=== PATIENT | female | born 1930 | race Caucasian/White ===

== ENCOUNTER 2016-12-19 08:47 | Inpatient (IN) | payer OTHER ==
[~2016-12-19] VITALS: Ht 157.5 cm; Wt 57.0 kg
--- NOTE | ~2016-12-19 | D ---
[facility] [place] [address] DISCHARGE SUMMARY Name: SUDHAKAR APARICIO Room #: 435-P [facility] IN M.R.#: [id number] Admission: 12/19/16 Attend Phys: Scott Mars MD Discharge: 12/21/16 Date of : 31 Report #: [id number] THIS REPORT FOR: //name// CC: Scott Shipman Juarez DATE OF SERVICE: 12/21/2016 FINAL DIAGNOSES: 1. Urinary tract infection. 2. Hypertension. HOSPITAL COURSE: The patient was admitted from her assisted living facility with general weakness. She was unable to function at that level due to acute illness and then was sent to the Emergency Room. She was diagnosed with urinary tract infection and treated with antibiotics. Urine culture was growing gram-negative rods and blood cultures were negative. Other lab data was unremarkable. Sepsis was ruled out. She was not hemodynamically unstable nor where there any signs of end-organ involvement. She tolerated hospital stay without any other incident. Home medications were continued and she continued Do Not Resuscitate status. PHYSICAL EXAMINATION: GENERAL: On the day of discharge, she was awake and alert. She had had some diarrhea, but this resolved. VITAL SIGNS: Temperature is 36.7, she was afebrile, pulse 80, respirations 20, blood pressure 154/88-178/89 with O2 sat 95% on room air. LUNGS: Clear. HEART: Regular. ABDOMEN: Soft. EXTREMITIES: Showed no edema. DISPOSITION: She will be discharged back to [facility] assisted living with diabetic diet, activity as tolerated. Continue medications plus Keflex 500 mg q.i.d. for 5 more days. <ELECTRONICALLY SIGNED> By: Scott Mars MD 12/22/16806 5 Scott Mars MD /nt
--- NOTE | ~2016-12-19 | EKG ---
[address] [place] [employer] [place] [address] ELECTROCARDIOGRAM REPORT Name: BALDEV APARICIONCCONNIE Mclean Room #: 435-P [facility] IN ..#: [id number] Admission: 12/19/16 Attend Phys: Scott Mars MD Discharge: 12/21/16 Date of : 31 Report #: [id number] THIS REPORT FOR: //name// [facility] ED Test Date: 2016-12-19 Test Time: 09:21:41 Pat Name: SUDHAKAR APARICIO Department: Room: [facility] Gender: F Principal Technical Architect: TARAS : 1930 Requested By: Coreen Parish Order Number: [id number] MD: Olman Anton Measurements Intervals [place] Rate: 66 P: -5 IN: 166 QRS: 3 QRSD: 56 T: 181 QT: 398 QTc: 417 Interpretive Statements Poor quality data, interpretation may be affected Sinus rhythm Electronically Signed On 12-22-2016 21:59:48 CDT by Olman Anton [email or web address] <ELECTRONICALLY SIGNED> By: Olman Anton MD 12/22/16 2159 0921 0 Olman Anton MD /LADONNA
--- NOTE | ~2016-12-19 | H ---
[facility] [place] [address] HISTORY AND PHYSICAL Name: SUDHAKAR APARICIO Room #: 435-P ADM IN M.R.#: [id number] Admission: 12/19/16 Attend Phys: Scott Mars MD Discharge: Date of : 31 Report #: [id number] THIS REPORT FOR: //name// CC: Scott Pizarro DATE OF SERVICE: 12/19/2016 ATTENDING PHYSICIAN: Ramonita Pizarro MD. CHIEF COMPLAINT: Weakness and fever. HISTORY OF PRESENT ILLNESS: The patient is an 86-year-old female from [facility] the [facility] who was sent in today with generalized weakness and fever. She by report lives in the assisted living level and normally can get up with her walker; however, this morning, she is told that she just felt weak all over and wanted to stay in bed. They noted some low-grade fever as well. This was a significant change. They spoke with Dr. Pizarro who directed her to the Emergency Room. There was report overnight of temperature of 99.1. PAST MEDICAL HISTORY: Parkinson's disease. She has a deep brain stimulator, myasthenia gravis, diabetes type 2, esophageal reflux, dyslipidemia, hypertension, hypothyroidism. PAST SURGICAL HISTORY: As above. FAMILY HISTORY: Noncontributory. SOCIAL HISTORY: As mentioned, she is in the assisted living at [facility] the [facility]. No chronic alcohol or tobacco use. ALLERGIES: CIPRO. MEDICATIONS: Fosamax, Lasix, Levoxyl, lisinopril, glucosamine, MiraLax, thiamine, calcium plus D, metformin, metoprolol, flaxseed, eye drops, Crestor, Tylenol, tramadol, gabapentin. REVIEW OF SYSTEMS: She just complains of urinary frequency, otherwise no headache, chest pain, shortness of breath, abdominal pain, nausea, vomiting, diarrhea, constipation, dysuria, syncope. PHYSICAL EXAMINATION: VITAL SIGNS: Temperature 37.1, pulse 70, respirations 13, blood pressure 120/56. GENERAL: She is awake and alert, in no distress. HEAD AND NECK: Slightly hard of hearing. [facility] [address] [place] [address] HISTORY AND PHYSICAL Name: SUDHAKAR APARICIO Room #: 435-P [facility] IN .R.#: [id number] Admission: 12/19/16 Attend Phys: Scott Mars MD Discharge: Date of : 31 Report #: [id number] LUNGS: Clear with no wheezing. On the anterior chest, there are 2 devices 1 on each upper site. HEART: Regular, no murmur. ABDOMEN: Soft, normoactive bowel sounds. EXTREMITIES: No cyanosis, clubbing or edema. NEUROLOGIC: Global strength 3-4/5 throughout. No tremor. LABORATORY REVIEW: Urinalysis was positive for leukocyte esterase, white cells, bacteria. White blood cell count 15 with the left shift, 73% segmented neutrophils, creatinine 1.1. Other electrolytes normal. ASSESSMENT: 1. Febrile illness. 2. Suspect urinary tract infection. 3. Parkinson's disease. 4. Hypertension. 5. Diabetes type 2. PLAN: IV fluids for now plus IV antibiotics pending culture results. Other home medications to continue. She has a do not resuscitate order from the facility, which will be continued here. <ELECTRONICALLY SIGNED> By: Scott Mars MD 12/20/16 0940 1220 1355 Scott Mars MD /nt
[~2016-12-19 08:47] MED LIST: ALENDRONATE SOD70 MG PO; CALCIUM 500 +1 EAC5 PO; CRESTOR10 MG PO; FLAX SEED OIL1000 MG PO; FUROSEMIDE 20 M20 MG GT; LEVOTHYROXINE0.05 MG PO; LISINOPRIL20 MG PO; METFORMIN HCL500 MG PO; MIRALAX17 G1 PO; OSTEO BI-FLEX1 EAC1 PO; SYSTANE 0.3-0.1 EACH OP; TOPROL XL100 MG PO; TRAMADOL 50 MG50 MG PO; TYLENOL325 MG PO; VITAMIN B-1100 M1 PO
[2016-12-19 08:48] VITALS: BP 120/56
[2016-12-19 09:13] LABS: ABSOLUTE NEUTROPHILS 11.2 thou/uL (1.4-8.2); BASOPHILS 1.1 % (0.0-2.0); EOSINOPHILS 0.2 % (0.0-3.0); HEMATOCRIT 34.9 % (37.0-47.0); HEMOGLOBIN 11.9 gm/dL (12.0-15.0); LYMPHOCYTES 14.8 % (24.0-44.0); MCH 31.1 pg (26.0-34.0); MCV 91.7 fL (80.0-100.0); PLATELET COUNT 222 thou/uL (150-400); POLYS 72.9 % (36.0-66.0); RBC 3.81 mil/uL (4.20-5.00); RDW 13.9 % (10.5-14.5); WBC 15.4 thou/uL (4.0-11.0)
[2016-12-19 09:14] LABS: MANUAL DIFF NO
[2016-12-19 09:15] LABS: ANION GAP 7 mmol/L (7-16); BUN 16 mg/dL (7-18); CALCIUM 9.1 mg/dL (8.5-10.1); CHLORIDE 104 mmol/L (98-107); CO2 27 mmol/L (21-32); CREATININE 1.1 mg/dL (0.6-1.0); GLUCOSE 118 mg/dL (74-106); POTASSIUM 3.8 mmol/L (3.5-5.1); SODIUM 138 mmol/L (136-145)
[2016-12-19 09:24] LABS: ALBUMIN 3.3 g/dL (3.4-5.0); ALKALINE PHOSPHATASE 65 U/L (46-116); SGOT 16 U/L (15-37); SGPT 13 U/L (30-65); TOTAL BILIRUBIN 1.2 mg/dL (<0.1-1.0); TOTAL PROTEIN 7.1 g/dL (6.4-8.2); TROPONIN-I < 0.04 ng/mL (<0.04-0.07)
[2016-12-19] MEDS ORDERED: GABAPENTIN 100100 MG PO (10:02)
[2016-12-19 10:07] LABS: URINE BILIRUBIN NEGATIVE (Negative); URINE BLOOD TRACE (Negative); URINE COLOR YELLOW; URINE GLUCOSE-RANDOM* NEGATIVE (Negative); URINE KETONES NEGATIVE (Negative); URINE NITRITE NEGATIVE (Negative); URINE PROTEIN (DIPSTICK) NEGATIVE (Negative); URINE SPECIFIC GRAVITY <= 1.005 (1.003-1.035); URINE UROBILINOGEN 0.2 E.U./dl (0.2-1.0)
[2016-12-19 10:13] LABS: SQUAMOUS 0-3 Few /LPF (0-3)
[2016-12-19 10:17] LABS: BACTERIA >30 Many /HPF (None Seen); CASTS None Seen /LPF (None Seen); CRYSTALS None Seen /LPF (None Seen); URINE RBC 0-2 Rare /HPF (0-2); URINE WBC 6-15 Few /HPF (0-5)
[2016-12-19 10:18] LABS: TRANSITIONAL EPITHEL CELL 0-3 Few /LPF (None Seen)
[2016-12-19 12:46] VITALS: BP 142/81
[2016-12-19 13:36] VITALS: BP 141/71
[2016-12-19 16:14] VITALS: BP 148/59
[2016-12-19 19:50] VITALS: BP 146/58
[2016-12-20 05:25] VITALS: BP 156/88
[2016-12-20 08:00] VITALS: BP 163/85
[2016-12-20 10:02] LABS: HEMATOCRIT 37.4 % (37.0-47.0); HEMOGLOBIN 12.3 gm/dL (12.0-15.0); MCH 30.6 pg (26.0-34.0); MCHC 33.1 g/dL (28.0-37.0); MCV 92.7 fL (80.0-100.0); RBC 4.03 mil/uL (4.20-5.00); RDW 13.9 % (10.5-14.5); WBC 11.1 thou/uL (4.0-11.0)
[2016-12-20 10:24] LABS: CALCIUM 8.6 mg/dL (8.5-10.1); POTASSIUM 3.8 mmol/L (3.5-5.1)
[2016-12-20 16:00] VITALS: BP 151/99
[2016-12-20 19:37] VITALS: BP 154/88
[2016-12-21 05:05] VITALS: BP 178/89
[2016-12-21 05:12] LABS: HEMATOCRIT 35.1 % (37.0-47.0); HEMOGLOBIN 11.8 gm/dL (12.0-15.0); MCH 31.3 pg (26.0-34.0); MCHC 33.8 g/dL (28.0-37.0); MCV 92.6 fL (80.0-100.0); RBC 3.79 mil/uL (4.20-5.00); RDW 14.3 % (10.5-14.5); WBC 8.7 thou/uL (4.0-11.0)
[2016-12-21 05:27] LABS: CALCIUM 8.3 mg/dL (8.5-10.1); CREATININE 0.9 mg/dL (0.6-1.0); POTASSIUM 3.6 mmol/L (3.5-5.1)
[2016-12-21] MEDS ORDERED: TRAMADOL 50 MG50 MG PO (07:42)
[2016-12-21] MEDS ORDERED: KEFLEX500 MG PO (07:43)
[2016-12-21 08:00] VITALS: BP 153/70
== END 2016-12-21 11:18 | DRG 690 ==
LOC: ER 08:47 → EROBS 10:35 → 4S 10:35
PROVIDERS: Internal Medicine Geriatric Medicine; Physician Assistant
DX: N39.0 Urinary tract infection, site not specified (principal); E11.9 Type 2 diabetes mellitus without complications; K21.9 Gastro-esophageal reflux disease without esophagitis; Z66 Do not resuscitate; G20 Parkinson's disease; E78.5 Hyperlipidemia, unspecified; I10 Essential (primary) hypertension; E03.9 Hypothyroidism, unspecified; Z79.899 Other long term (current) drug therapy; Z88.1 Allergy status to other antibiotic agents
CPT/HCPCS: 10100

== ENCOUNTER 2016-12-25 10:46 | Inpatient (IN) | payer OTHER ==
[~2016-12-25] VITALS: Ht 157.5 cm; Wt 59.0 kg
--- NOTE | ~2016-12-25 | HC ---
[facility] [place] [address] CONSULTATION Name: SUDHAKAR APARICIO Room #: 312-P ADM IN M.R.#: [id number] Admission: 12/25/16 Attend Phys: Scott Mars MD Discharge: Date of : 31 Report #: [id number] THIS REPORT FOR: //name// CC: Scott Ochoa MD DATE OF SERVICE: 12/25/2016 TYPE OF REPORT: Gastroenterology consultation. PRIMARY CARE PHYSICIANS: Ramonita Ochoa M.D. and Scott Mars M.D. CHIEF COMPLAINT AND HISTORY OF PRESENT ILLNESS: This is a very pleasant 86-year-old white female who has somewhat halting speech. I am asked to evaluate for possible etiologies of lower abdominal pain that is actually quite diffuse bit worse in the lower abdomen, dysphagia, which might be related to her myesthesia gravis and lightheadedness and dizziness. The patient was just recently is for urinary tract infection and returned with new symptoms and dizziness and lightheadedness and lower abdominal pain. PAST MEDICAL HISTORY: Significant for diabetes mellitus, possibly a TIA, urinary tract infections and myasthenia gravis. She has a deep brain stimulator. She has a history of tremors, hypothyroidism, hypertension and bilateral rotator cuff injuries. She also has gastroesophageal reflux. PAST SURGICAL HISTORY: Significant for at least placement of the deep brain stimulator. ALLERGIES: To CIPRO. MEDICATIONS: Prior to this admission included acetaminophen, Neurontin, Synthroid, Zestril, Glucophage, Toprol XL and MiraLax p.r.n. SOCIAL HISTORY: She does not smoke. She does not drink alcohol. She does not use any street drugs. FAMILY HISTORY: Significant for colon cancer in her father. Has no history of Crohn's disease or ulcerative colitis in her family. REVIEW OF SYSTEMS: She admits to dysphagia to both solids and liquids and I think this is likely related to her diagnosis of myasthenia gravis. She denies any gastroesophageal reflux, hiatal hernia or peptic ulcer disease. She states her weight has been stable. Her appetite is usually good. She has no nausea or vomiting. She denies any chills or fevers. She denies any hematemesis, hematochezia or melena. She does have some constipation and that is well [facility] [address] [place] [address] CONSULTATION Name: SUDHAKAR APARICIO Room #: 312-P [facility]#: [id number] Admission: 12/25/16 Attend Phys: Scott Mars MD Discharge: Date of : 31 Report #: [id number] controlled with MiraLax. She complains of lower abdominal pain primarily, but her abdomen is diffusely tender. She states this pain is not always present, just it comes and goes. It may be worse with food intake. Her last colonoscopy was several years ago. PHYSICAL EXAMINATION: GENERAL: Reveals a well-developed, well-nourished 86-year-old white female, in no obvious distress at the time of the examination, who is awake and alert and oriented x4 and cooperative. NEUROLOGICAL: She does have some trouble searching for her words at times and cannot say what she is trying to say frequently according to her daughter sounds like an aphagia from a stroke, but I do not think she has had any history of a cerebrovascular accident. Possibly, she did have a TIA. RADIOLOGICAL DATA: CT results, CT of the abdomen showed gallstones, possible mild gastroenteritis, mural thickening of the distal stomach and numerous proximal small bowel loops. IMPRESSION: 1. Dizziness and lightheadedness and lower abdominal pain in her chief complaints. 2. Recently hospitalized for urinary tract infection. 3. History of diabetes mellitus. 4. Myasthenia gravis with a deep brain stimulator. 5. Dysphagia to solids and liquids, possibly related to her myasthenia gravis. 6. Gastroesophageal reflux. 7. CT shows thickening of the distal stomach and proximal small intestine, gastroenteritis (?), ischemia (?). Her lactate on admission was 2.9 and is down to 1.3 and now, her white count is 12.3. 8. Tremor, possibly Parkinson's. 9. Hypertension. 10. Hypothyroidism. 11. History of bilateral rotator cuff injuries. 12. Family history of colon cancer in her father. RECOMMENDATIONS: To continue the Flagyl and Zosyn that she started. I would recommend proton pump inhibitors. I would also recommend an EGD in the morning to evaluate and mural thickening of the distal stomach and proximal small intestine. We will keep her n.p.o. after midnight. We will obtain a consent for me to do the EGD and we will schedule that procedure for tomorrow afternoon. Thank you very much once again for allowing me to participate in her care. <ELECTRONICALLY SIGNED> By: Geraldine Blanchard DO 12/26/16 0747 2127 2351 Geraldine Blanchard DO /nt
--- NOTE | ~2016-12-25 | D ---
[facility] [place] [address] DISCHARGE SUMMARY Name: SUDHAKAR APARICIO Room #: 312-P ADM IN M.R.#: [id number] Admission: 12/25/16 Attend Phys: Scott Mars MD Discharge: Date of : 31 Report #: [id number] THIS REPORT FOR: //name// CC: Scott Shipman Juarez DATE OF SERVICE: 12/30/2016 DISCHARGE DIAGNOSES: 1. Abdominal pain. 2. Gastritis. 3. Duodenitis. 4. Diabetes type 2. 5. Hypertension. HOSPITAL COURSE: The patient was admitted with abdominal pain. She had a slightly elevated white blood cell count. Empiric antibiotics were added. GI service was consulted and EGD was performed. This showed some gastritis and duodenitis. She was placed on a PPI. She was also noted to have a Schatzki ring, which was dilated. Please see the full EGD report for details. She tolerated the procedure without incident and was improved following. Her white count normalized. Other cultures were negative. She had no other interval complication. DISCHARGE PHYSICAL EXAMINATION: GENERAL: On the day of discharge, she was awake and alert, sitting up in bed, eating, in no distress. LUNGS: Clear. HEART: Regular. ABDOMEN: Soft, normoactive bowel sounds. No rebound or guarding. She was just slightly tender throughout. EXTREMITIES: Showed no edema. DISCHARGE DISPOSITION: She will return to [facility]. DIET: Diabetic diet. ACTIVITY: As tolerated. PT, OT. DISCHARGE MEDICATIONS: She will finish off a course of Augmentin and Flagyl. [facility] [address] [place] [address] DISCHARGE SUMMARY Name: SUHDAKAR APARICIO Room #: 312-P ADM IN M.R.#: [id number] Admission: 12/25/16 Attend Phys: Scott Mars MD Discharge: Date of : 31 Report #: [id number] Protonix has been added. She will continue other medications. She will continue vv-[id number]-pekiaxhnqym status and follow up with Dr. Mcfarlane. <ELECTRONICALLY SIGNED> By: Scott Mars MD 12/30/16 1110 0831 0942 Scott Mars MD /nt
--- NOTE | ~2016-12-25 | P ---
[place] [address] PROCEDURE REPORT Name: SUDHAKAR APARICIO Room #: 312-P ADM IN M.R.#: [id number] Admission: 12/25/16 Attend Phys: Scott Mars MD Discharge: Date of : 31 Report #: [id number] THIS REPORT FOR: //name// CC: Scott Pizarro PROCEDURE: EGD with biopsies. PATIENT OF: Dr. Ramonita Pizarro and Dr. Scott Mars. INDICATION FOR PROCEDURE: Evaluate dysphagia and thickening of the distal gastric and proximal small bowel santiago of uncertain etiology. Informed consent for this procedure was obtained prior to the administration of any medication. The risks of the procedure which include bleeding, perforation, infection, complications of sedation and the possibility I could miss something have been explained to the patient and she has indicated her consent by signing. Propofol was slowly titrated before and during this procedure for patient comfort by the anesthesia service. The A-STARn upper videoscope was introduced through the upper esophageal sphincter and advanced under direct visualization to the distal second portion of the duodenum. Findings are noted on withdrawal of the scope. The duodenum is erythematous. Free bile was seen draining into the duodenum without any problem. The duodenal bulb likewise is erythematous with a few nodules that are usually ectopic gastric mucosa on biopsy. There was a good villous pattern with long villi present and visible. The scope was withdrawn through the pylorus. The pylorus is mildly erythematous. The antrum is erythematous with flecks of old brown blood present. The source of this blood is not clear from this exam. There is erythema. 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 Body, erythematous mucosa. Cardia and fundus, normal mucosa. Retroflex view did not reveal any abnormalities other than a hiatal hernia. The scope was withdrawn into the esophagus. The esophageal mucosa appears normal throughout its entirety. There is a Schatzki ring down at the Z line at the bottom of the esophagus that looks like it might cause some dysphagia problems. We advanced the scope down into the stomach again and a guidewire through the scope and pulled the scope out over the guidewire. Then we placed a #48 [place] Sav[place] dilator other the guidewire without difficulty. Then, the guidewire and the dilator were removed. Then the A-STARn upper videoscope was reintroduced through the upper esophageal sphincter and advanced again down into the stomach. Retroflexed in the stomach did not reveal any abnormalities at all at the cardia level. Good hemostasis was noted after the dilatation. It does appear that the Schatzki ring has been opened, it is oozing slightly and good hemostasis was noted finally after watching it for a minute or two and then the esophageal mucosa was normal throughout its entirety again on withdrawal of the scope. [address] [place] [address] PROCEDURE REPORT Name: SUDHAKAR APARICIO Room #: 312-P [facility] IN M.R.#: [id number] Admission: 12/25/16 Attend Phys: Scott Mars MD Discharge: Date of : 31 Report #: [id number] Biopsies were obtained times 2 from the stomach for histopathology as this area was thickened. These are just mucosal biopsies, however, and any thickening deeper than the mucosal level will not show up on these biopsies. Good hemostasis was noted after all biopsies. The scope was withdrawn. The patient went to the recovery area in stable condition. She tolerated the procedure well. IMPRESSION: 1. Distal Schatzki rink, dilated as above. 2. Gastroduodenitis as above. 3. Hiatal hernia, small. 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 RECOMMENDATIONS: To await the biopsy results. We will make sure that she is on proton pump inhibitors. We will start her on a soft diet. Thank you very much once again for allowing me to participate in her care, Dr. Mars and Dr. Pizarro. <ELECTRONICALLY SIGNED> By: Geraldine Blanchard DO 12/26/16 2004 1428 1811 Geraldine Blanchard DO /nt
--- NOTE | ~2016-12-25 | S ---
[facility] [place] [address] SURGICAL PATH RPT PROCEDURE Name: PRIYANKA BROWN Room #: 312-P ADM IN M.R.#: [id number] Admission: 12/25/16 Date of : 31 Discharge: Report #: [id number] Path Case #: [id number] PATHOLOGY REPORT COLLECTION DATE: 12/26/2016 RECEIVED DATE: 12/27/2016 SUBMITTING PHYS: Dr. Geraldine Blanchard OTHER PHYS: Dr. Scott Mcfarlane SPECIMEN(S) RECEIVED: A.Gastric bx, r/o gastroduodenitis * * * * * * * * * * * * FINAL DIAGNOSIS: Gastric mucosa, "gastric rule out gastroduodenitis", endoscopic biopsy: - Mild reactive gastropathy. - Negative for intestinal metaplasia or atrophy. - Negative for Helicobacter pylori. (IUV:karina; 12/30/2016) COMMENT: Helicobacter pylori immunohistochemical stain performed on block A1-negative. PATHOLOGIST: Janeth Nix M.D. REPORT ELECTRONICALLY SIGNED BY: Janeth Nix M.D. DATE/TIME: 12/30/2016 18:55 * * * * * * * * * * * * GROSS PATHOLOGY: Received in formalin labeled "Priyanka Brown, gastric BX," and additionally labeled on the requisition as "R/O gastro-duodenitis," are two segments of skelton soft tissue measuring 0.7 x 0.2 x 0.3 cm in aggregate dimensions and ranging from 0.3 to 0.4 cm in maximum dimension. The specimen is submitted entirely in cassette A1. (TSD; 12/27/2016) CLINICAL HISTORY: Pre-OP DX: Abdominal pain Post-OP DX: Dysphasia, gastritis INITIAL CPT CODE(S): A; 44888, 11336 [facility] [address] [address] SURGICAL PATH RPT PROCEDURE Name: MARKUSPRIYANKA Room #: 312-P [facility] IN ..#: [id number] Admission: 12/25/16 Date of : 31 Discharge: Report #: [id number] Path Case #: [id number] Professional services performed by [facility] at [address] [place] [address] Technical services performed by [facility] at [address] [place] [address], [place] [address]. [facility] [address] [place] [address] PHONE: [phone] DIRECTOR: Fadi Santos M.D. * * * END OF REPORT * * *
--- NOTE | ~2016-12-25 | H ---
[facility] [place] [address] HISTORY AND PHYSICAL Name: SUDHAKAR APARICIO Room #: 312-P [facility] IN M.R.#: [id number] Admission: 12/25/16 Attend Phys: Scott Mars MD Discharge: Date of : 31 Report #: [id number] THIS REPORT FOR: //name// CC: Scott Shipman Juarez DATE OF SERVICE: 12/25/2016 CHIEF COMPLAINT: Abdominal pain. HISTORY OF PRESENT ILLNESS: The patient is an 86-year-old female from [facility], came back to the Emergency Room with general weakness and abdominal pain. She was hospitalized last week with weakness and was diagnosed of urinary tract infection. She had a slightly elevated white count at that time and ultimately a urine culture grew Klebsiella and she was discharged on oral Keflex. However, she came back to the Emergency Room today complaining of abdominal pain. CT of the abdomen still shows some diffuse enterocolitis type changes and she has a slightly elevated white count, it is not clear whether she has been having any nausea or vomiting or diarrhea. She is somewhat forgetful, but slightly confused at baseline and having a hard time explaining her symptoms. However, she is alert and pleasant and in no distress. PAST MEDICAL HISTORY: Parkinson's disease, she has a deep brain stimulator, myasthenia gravis, diabetes type 2, esophageal reflux, hypertension, hypothyroid. PAST SURGICAL HISTORY: As above. FAMILY HISTORY: Noncontributory. SOCIAL HISTORY: No chronic alcohol or tobacco use. ALLERGIES: CIPRO. MEDICATIONS: Fosamax, Lasix, Levoxyl, lisinopril, glucosamine, MiraLax, vitamin, calcium, metformin, metoprolol, Crestor, Tylenol, tramadol, gabapentin. REVIEW OF SYSTEMS: Other than her abdominal symptoms. She denies any fever, chills, productive cough, shortness of breath, chest pain, dysuria, syncope. OBJECTIVE: VITAL SIGNS: Temperature 98.4. She is afebrile, pulse 77, respirations 16, blood pressure 155/64. GENERAL: She is awake and alert, lying in bed, slightly hard of hearing. HEAD AND NECK: Unremarkable. LUNGS: Clear. [facility] [address] [place] [address] HISTORY AND PHYSICAL Name: SUDHAKAR APARICIO Room #: 312-P [facility] IN [facility]#: [id number] Admission: 12/25/16 Attend Phys: Scott Mars MD Discharge: Date of : 31 Report #: [id number] HEART: Regular. ABDOMEN: Soft, normoactive bowel sounds. Slightly tender to deep palpation. There is no guarding or rebound. EXTREMITIES: No cyanosis, clubbing or edema. LABORATORY DATA: Urinalysis was negative. White count is 12 with a slight left shift, 75% segs, lactic acid was 2.9 ____ Chemistry: LFTs were normal. Albumin is normal. Chest x-ray was negative. CT of the abdomen shows some mural thickening of the mid and distal stomach and some proximal small bowel loops. There is some stool in the colon, no sign of obstruction, some sludge and a calculi in the gallbladder, but it is less distended then last week. ASSESSMENT: 1. Abdominal pain. 2. Gastroenteritis. 3. Parkinsonism. PLAN: Empiric antibiotics with Zosyn and Flagyl for now. I will ask the GI service to see her if she has had symptoms now dating back to last week. Her urinary tract infection has cleared with a negative sample, other home medications to continue, Lovenox for DVT prophylaxis. She has do not resuscitate status from the [facility] ____. <ELECTRONICALLY SIGNED> By: Scott Mars MD 12/26/16 0858 1334 1405 Scott Mars MD /nt
[~2016-12-25 10:46] MED LIST changes: +GABAPENTIN 100100 MG PO; +KEFLEX500 MG PO
[2016-12-25 10:48] VITALS: BP 155/64
[2016-12-25 11:25] LABS: ABSOLUTE NEUTROPHILS 9.5 thou/uL (1.4-8.2); BASOPHILS 0.8 % (0.0-2.0); EOSINOPHILS 2.2 % (0.0-3.0); HEMATOCRIT 37.2 % (37.0-47.0); HEMOGLOBIN 12.6 gm/dL (12.0-15.0); MCH 31.1 pg (26.0-34.0); MCHC 33.7 g/dL (28.0-37.0); MCV 92.2 fL (80.0-100.0); MONOCYTES 9.2 % (1.0-8.0); PLATELET COUNT 304 thou/uL (150-400); POLYS 75.8 % (36.0-66.0); RBC 4.04 mil/uL (4.20-5.00); RDW 14.2 % (10.5-14.5); WBC 12.5 thou/uL (4.0-11.0)
[2016-12-25 11:27] LABS: MANUAL DIFF NO
[2016-12-25 11:27] LABS: URINE BILIRUBIN NEGATIVE (Negative); URINE BLOOD NEGATIVE (Negative); URINE COLOR YELLOW; URINE GLUCOSE-RANDOM* NEGATIVE (Negative); URINE KETONES NEGATIVE (Negative); URINE LEUKOCYTES-REFLEX NEGATIVE (Negative); URINE PROTEIN (DIPSTICK) NEGATIVE (Negative); URINE UROBILINOGEN 0.2 E.U./dl (0.2-1.0)
[2016-12-25 11:28] LABS: ANION GAP 9 mmol/L (7-16); BUN 12 mg/dL (7-18); CALCIUM 9.6 mg/dL (8.5-10.1); CHLORIDE 100 mmol/L (98-107); CO2 29 mmol/L (21-32); GLUCOSE 145 mg/dL (74-106); POTASSIUM 3.7 mmol/L (3.5-5.1); SODIUM 138 mmol/L (136-145)
[2016-12-25 11:37] LABS: ALBUMIN 3.5 g/dL (3.4-5.0); ALKALINE PHOSPHATASE 73 U/L (46-116); SGOT 16 U/L (15-37); SGPT 14 U/L (30-65); TOTAL BILIRUBIN 0.8 mg/dL (<0.1-1.0); TOTAL PROTEIN 7.9 g/dL (6.4-8.2); TROPONIN-I < 0.04 ng/mL (<0.04-0.07)
[2016-12-25] MEDS ORDERED: CALCIUM 600 +1 EA17 PO (13:10)
[2016-12-25] MEDS ORDERED: VITAMIN B-12500 MCG PO (13:11)
[2016-12-25 13:54] VITALS: BP 155/64
[2016-12-25 14:16] VITALS: BP 142/72
[2016-12-25 15:37] VITALS: BP 165/81
[2016-12-25 20:30] VITALS: BP 159/61
[2016-12-26 00:25] VITALS: BP 149/59
[2016-12-26 04:39] LABS: HEMATOCRIT 34.5 % (37.0-47.0); HEMOGLOBIN 11.5 gm/dL (12.0-15.0); MCH 30.8 pg (26.0-34.0); MCHC 33.4 g/dL (28.0-37.0); MCV 92.2 fL (80.0-100.0); PLATELET COUNT 272 thou/uL (150-400); RBC 3.74 mil/uL (4.20-5.00); RDW 13.7 % (10.5-14.5); WBC 10.4 thou/uL (4.0-11.0)
[2016-12-26 04:57] LABS: ALBUMIN 2.9 g/dL (3.4-5.0); CALCIUM 8.6 mg/dL (8.5-10.1); CREATININE 0.9 mg/dL (0.6-1.0); POTASSIUM 3.6 mmol/L (3.5-5.1); TOTAL PROTEIN 6.8 g/dL (6.4-8.2)
[2016-12-26 04:58] LABS: MANUAL DIFF YES
[2016-12-26 05:10] VITALS: BP 153/76
[2016-12-26 07:54] LABS: ABSOLUTE NEUTROPHILS 7.1 thou/uL (1.4-8.2); TOTAL CELL COUNT 100
[2016-12-26 07:55] LABS: ANISOCYTOSIS SLIGHT
[2016-12-26 09:11] VITALS: BP 150/98
[2016-12-26 19:49] VITALS: BP 158/79
[2016-12-27 04:04] LABS: HEMATOCRIT 35.4 % (37.0-47.0); HEMOGLOBIN 11.7 gm/dL (12.0-15.0); MCH 30.7 pg (26.0-34.0); MCHC 33.1 g/dL (28.0-37.0); MCV 92.9 fL (80.0-100.0); PLATELET COUNT 297 thou/uL (150-400); RBC 3.81 mil/uL (4.20-5.00); RDW 13.9 % (10.5-14.5); WBC 9.1 thou/uL (4.0-11.0)
[2016-12-27 04:05] VITALS: BP 95/71
[2016-12-27 04:14] LABS: MANUAL DIFF YES
[2016-12-27 05:17] LABS: ABSOLUTE NEUTROPHILS 6.2 thou/uL (1.4-8.2); TOTAL CELL COUNT 100
[2016-12-27 08:16] VITALS: BP 176/73
[2016-12-27 20:05] VITALS: BP 142/99
[2016-12-28 04:20] VITALS: BP 139/88
[2016-12-28 04:35] LABS: HEMOGLOBIN 10.5 gm/dL (12.0-15.0); MCH 31.4 pg (26.0-34.0); MCHC 33.9 g/dL (28.0-37.0); MCV 92.5 fL (80.0-100.0); RBC 3.35 mil/uL (4.20-5.00); WBC 7.7 thou/uL (4.0-11.0)
[2016-12-28 04:44] LABS: CALCIUM 8.3 mg/dL (8.5-10.1); CREATININE 0.8 mg/dL (0.6-1.0); POTASSIUM 3.4 mmol/L (3.5-5.1)
[2016-12-28 08:00] VITALS: BP 157/91
[2016-12-28 16:00] VITALS: BP 141/77
[2016-12-28 19:18] VITALS: BP 162/90
[2016-12-29 03:15] VITALS: BP 149/102
[2016-12-29 07:29] VITALS: BP 172/106
[2016-12-29 11:52] VITALS: BP 157/116
[2016-12-29 15:23] VITALS: BP 107/64
[2016-12-29 19:16] VITALS: BP 125/83
[2016-12-30 04:10] VITALS: BP 117/79
[2016-12-30 04:44] LABS: HEMATOCRIT 33.1 % (37.0-47.0); MCH 30.6 pg (26.0-34.0); MCHC 33.1 g/dL (28.0-37.0); MCV 92.5 fL (80.0-100.0); RBC 3.58 mil/uL (4.20-5.00); RDW 14.1 % (10.5-14.5); WBC 7.2 thou/uL (4.0-11.0)
[2016-12-30 04:56] LABS: CALCIUM 8.6 mg/dL (8.5-10.1); CREATININE 0.9 mg/dL (0.6-1.0); POTASSIUM 3.7 mmol/L (3.5-5.1)
[2016-12-30 07:33] VITALS: BP 172/86
[2016-12-30] MEDS ORDERED: FLAGYL500 MG PO (08:26)
[2016-12-30] MEDS ORDERED: AUGMENTIN 875875 MG PO (08:26)
[2016-12-30] MEDS ORDERED: PROTONIX40 M1 PO (08:27)
[2016-12-30 11:57] VITALS: BP 152/79
[2016-12-30 15:53] VITALS: BP 145/118
[2016-12-30 16:09] VITALS: BP 115/85
== END 2016-12-30 18:26 | DRG 392 ==
LOC: ER 10:46 → EROBS 13:02 → 3N 13:02 → EROBS 14:18 → 3N 15:09
PROVIDERS: Internal Medicine Geriatric Medicine; Physician Assistant
PROC: 05H633Z Insertion of Infusion Device into Left Subclavian Vein, Percutaneous Approach (ICD-10-PCS; principal; 2016-12-26)
PROC: 0DB68ZX Excision of Stomach, Via Natural or Artificial Opening Endoscopic, Diagnostic (ICD-10-PCS; 2016-12-26)
DX: K52.9 Noninfective gastroenteritis and colitis, unspecified (principal); N39.0 Urinary tract infection, site not specified; E87.2 Acidosis; E11.9 Type 2 diabetes mellitus without complications; K21.9 Gastro-esophageal reflux disease without esophagitis; E78.5 Hyperlipidemia, unspecified; I10 Essential (primary) hypertension; E03.9 Hypothyroidism, unspecified; Z96.652 Presence of left artificial knee joint; G70.9 Myoneural disorder, unspecified; K22.2 Esophageal obstruction; K44.9 Diaphragmatic hernia without obstruction or gangrene; K29.90 Gastroduodenitis, unspecified, without bleeding; G20 Parkinson's disease; R13.10 Dysphagia, unspecified; K22.4 Dyskinesia of esophagus; Z79.899 Other long term (current) drug therapy; Z88.1 Allergy status to other antibiotic agents; Z86.73 Personal history of transient ischemic attack (TIA), and cerebral infarction without residual deficits; Z80.0 Family history of malignant neoplasm of digestive organs; Z84.89 Family history of other specified conditions
CPT/HCPCS: 10094; 27001; 62110; 70005

== ENCOUNTER 2017-05-15 08:08 | Emergency (ER) | payer OTHER ==
[~2017-05-15] VITALS: Ht 154.9 cm; Wt 68.0 kg
--- NOTE | ~2017-05-15 | EKG ---
[place] [address] [facility] [place] [address] ELECTROCARDIOGRAM REPORT Name: APARICIOSUDHAKAR DE LA PAZ Room #: REG [facility]#: [id number] Admission: 05/15/17 Attend Phys: Discharge: Date of : 31 Report #: [id number] THIS REPORT FOR: //name// [facility] ED Test Date: 2017-05-15 Test Time: 09:22:54 Pat Name: SUDHAKAR APARICIO Department: Room: Gender: F Pearl Maker: cweialex : 1930 Requested By: Matt Salas Order Number: [id number] MD: Olman Anton Measurements Intervals [place] Rate: 68 P: 0 LA: 205 QRS: 19 QRSD: 81 T: 1 QT: 404 QTc: 430 Interpretive Statements Sinus rhythm LVH by voltage Nonspecific T abnormalities, inferior leads Artifact in lead(s) I,II,III,aVR,aVL,aVF,V1,V2,V3,V4 Electronically Signed On 05-15-2017 9:57:49 MALWARE ANALYST by Olman Anton [email or web address] <ELECTRONICALLY SIGNED> By: Olman Anton MD 05/15/1757 1 1 Olman Anton MD /LADONNA
[~2017-05-15 08:08] MED LIST changes: +AUGMENTIN 875875 MG PO; +CALCIUM 600 +1 EA17 PO; +FLAGYL500 MG PO; +PROTONIX40 M1 PO; +VITAMIN B-12500 MCG PO
[2017-05-15 08:09] VITALS: BP 119/61
== END 2017-05-15 10:53 | disposition home or self-care (01) ==
LOC: ER 08:08
DX: J18.9 Pneumonia, unspecified organism (principal); E11.9 Type 2 diabetes mellitus without complications; K21.9 Gastro-esophageal reflux disease without esophagitis; E78.5 Hyperlipidemia, unspecified; I10 Essential (primary) hypertension; E03.9 Hypothyroidism, unspecified; G70.00 Myasthenia gravis without (acute) exacerbation; Z88.1 Allergy status to other antibiotic agents

== ENCOUNTER 2018-02-07 13:49 | Inpatient (IN) | payer OTHER ==
[~2018-02-07] VITALS: Ht 157.5 cm; Wt 60.4 kg
--- NOTE | ~2018-02-07 | D ---
[facility] [place] [address] DISCHARGE SUMMARY Name: SUDHAKAR APARICIO Room #: 455-P [facility] IN M.R.#: [id number] Admission: 02/09/18 Attend Phys: Ramonita Pizarro MD Discharge: 02/11/18 Date of : 32 Report #: [id number] THIS REPORT FOR: //name// CC: Ramonita Pizarro FINAL DIAGNOSES: 1. Aspiration pneumonia. 2. Oropharyngeal dysphagia. 3. Pneumonitis. 4. Leukocytosis due to the above. 5. Hypoxia due to #1. HOSPITAL COURSE: The patient was admitted after a choking episode at her assisted living facility. She was admitted and treated for aspiration pneumonia. Chest x-ray was showing some basilar infiltrate with steady improvement during the course of her stay. She received IV steroids. Due to bronchospasm with cough and wheezing, steroids were added as well along with nebulized treatments, which seemed to help. Her other home medications were continued. She required 3-4 liters of oxygen nasal cannula for O2 sats in the upper 90s. On the day of discharge, she was awake and alert, sitting up in the bedside chair, back to her baseline self. She had a swallow evaluation, which recommended pureed diet with nectar thick liquids. PHYSICAL EXAMINATION: LUNGS: Clear, but she had a coarse cough. HEART: Regular. ABDOMEN: Soft, normoactive bowel sounds. EXTREMITIES: No edema. DISPOSITION: She will return to [facility]. Diet, nectar thick liquids, oxygen at 4 liters to slowly wean off. Nebulized treatments for 10 days, antibiotics for 7 days, prednisone for 5 days. Cough medicine for 7 days. Her usual home medications will include Levoxyl, MiraLax, Toprol-XL, Tylenol, Neurontin, tramadol, Lasix, Plavix and Flexeril to be discontinued. <ELECTRONICALLY SIGNED> By: Scott Mars MD 02/12/18 1053 [id number] Scott Mars MD /nt
--- NOTE | ~2018-02-07 | H ---
[facility] [place] [address] HISTORY AND PHYSICAL Name: SUDHAKAR APARICIO Room #: 455-P [facility].#: [id number] Admission: 02/07/18 Attend Phys: Ramonita Ochoa MD Discharge: Date of : 31 Report #: [id number] THIS REPORT FOR: //name// CC: Ramonita Ochoa DATE OF SERVICE: 02/08/2018 ATTENDING PHYSICIAN: Ramonita Ochoa MD CHIEF COMPLAINT: Cough and choking at lunch. HISTORY OF PRESENT ILLNESS: The patient is an 87-year-old lady with known history of diabetes mellitus and hypertension with reflux, was at lunch at [facility] when she choked on her food. The patient had difficulty swallowing and was coughing up. She was also noted to have a low oxygen saturation. She was brought to the Emergency Room where she was evaluated and there was no foreign body noted. The patient continued to have hypoxia and the chest x-ray was clear. The patient has been admitted to the hospital and continues to have some discomfort. The patient has tolerated full liquid diet. She continues to have low oxygen saturation and is on supplemental oxygen. She is awaiting evaluation by the speech therapist for swallowing. PAST MEDICAL HISTORY: Significant for history of myasthenia gravis, diabetes mellitus, tremor, esophageal reflux, hyperlipidemia, hypertension, hypothyroidism, Parkinson disease, and knee arthritis. ALLERGIES: SHE IS KNOWN TO BE ALLERGIC TO CIPRO. MEDICATIONS: She was currently on was Protonix, levothyroxine, MiraLax, metformin, metoprolol, Tylenol, and gabapentin. SOCIAL HISTORY: The patient is residing at [facility]. She is in independent living. She is , does not smoke or drink alcohol. REVIEW OF SYSTEMS: She denied having any chest pain or any abdominal pain or diarrhea. PHYSICAL EXAMINATION: GENERAL: Elderly lady, was resting in bed. She was on supplemental oxygen. She was responsive, did not appear to be in distress. VITAL SIGNS: She was afebrile, temperature 36.8, pulse of 81, respiratory rate 18, blood pressure 117/48, oxygen saturation 96% on 3 liters of oxygen. HEENT: Skull was atraumatic. There was no pallor, no icterus. Mucosa was moist. NECK: Supple. LUNGS: Coarse breath sounds bilaterally. There were no localized crackles or [facility] [address] [place] [address] HISTORY AND PHYSICAL Name: SUDHAKAR APARICIO Room #: 455-P [facility]#: [id number] Admission: 02/07/18 Attend Phys: Ramonita Ochoa MD Discharge: Date of : 32 Report #: [id number] dullness. HEART: First and second normal. ABDOMEN: Soft, nontender. Bowels normally heard. EXTREMITIES: Did not reveal any edema. NEUROLOGIC: The patient had proximal muscle weakness. LABORATORY DATA: Showed glucose, which was 131 this morning. A chest x-ray did not show any acute process, which was done yesterday, and the neck x-ray did not show any soft tissue mass. ASSESSMENT: 1. Aspiration with choking. 2. Hypoxia. 3. Diabetes mellitus. 4. Hypertension. 5. Myasthenia gravis. 6. Parkinson disease. 7. Gastroesophageal reflux disease. PLAN: To continue the patient on medications. We will await Speech Therapy evaluation for swallowing and get a repeat chest x-ray this morning. Continue to try and wean her off the oxygen. By: 0930 1235 Ramonita Ochoa MD /nt
[2018-02-07 14:01] VITALS: BP 160/67
[2018-02-07 16:55] VITALS: BP 172/68
[2018-02-07 17:40] VITALS: BP 148/79; BP 172/68
[2018-02-07] MEDS ORDERED: CYCLOBENZAPRINE5 MG PO (18:09)
[2018-02-07] MEDS ORDERED: LASIX 20 MG TAB20 MG PO (18:10)
[2018-02-07] MEDS ORDERED: TRAMADOL 50 MG50 MG PO (18:10)
[2018-02-07] MEDS ORDERED: PLAVIX 75 MG TA75 M1 PO (18:11)
[2018-02-07 20:02] VITALS: BP 136/103
[2018-02-07 22:58] VITALS: BP 136/103
[2018-02-08 07:56] VITALS: BP 117/48
[2018-02-08 19:16] VITALS: BP 148/54
[2018-02-08 19:16] LABS: HCO3 27.7 mmol/L (22.0-26.0); PCO2 38.5 mmHg (35.0-45.0); PO2 56.8 mmHg (80.0-100.0); pH 7.475 (7.360-7.450); sO2 91.4 % (92.0-98.0)
[2018-02-09 03:36] VITALS: BP 136/89
[2018-02-09 05:35] LABS: HEMATOCRIT 35.4 % (37.0-47.0); HEMOGLOBIN 11.9 gm/dL (12.0-15.0); MCH 30.7 pg (26.0-34.0); MCHC 33.7 g/dL (28.0-37.0); RBC 3.88 mil/uL (4.20-5.00); RDW 14.1 % (10.5-14.5); WBC 15.4 thou/uL (4.0-11.0)
[2018-02-09 07:47] VITALS: BP 153/83
[2018-02-09 19:57] VITALS: BP 151/78
[2018-02-10 05:41] LABS: HEMATOCRIT 33.9 % (37.0-47.0); HEMOGLOBIN 11.5 gm/dL (12.0-15.0); MCH 30.9 pg (26.0-34.0); MCHC 33.8 g/dL (28.0-37.0); MCV 91.5 fL (80.0-100.0); RBC 3.71 mil/uL (4.20-5.00); RDW 14.2 % (10.5-14.5); WBC 12.5 thou/uL (4.0-11.0)
[2018-02-10 05:55] LABS: CALCIUM 8.9 mg/dL (8.5-10.1); POTASSIUM 3.4 mmol/L (3.5-5.1)
[2018-02-10 07:00] VITALS: BP 163/85
[2018-02-10 15:04] VITALS: BP 159/69
[2018-02-10 19:15] VITALS: BP 158/88
[2018-02-10 22:42] VITALS: BP 158/88
[2018-02-11 06:04] LABS: HEMATOCRIT 32.8 % (37.0-47.0); HEMOGLOBIN 11.1 gm/dL (12.0-15.0); MCH 30.8 pg (26.0-34.0); MCHC 33.9 g/dL (28.0-37.0); MCV 90.7 fL (80.0-100.0); RBC 3.62 mil/uL (4.20-5.00); RDW 13.6 % (10.5-14.5)
[2018-02-11 06:26] LABS: CALCIUM 9.4 mg/dL (8.5-10.1); CREATININE 1.1 mg/dL (0.6-1.0); POTASSIUM 3.5 mmol/L (3.5-5.1)
[2018-02-11 08:08] VITALS: BP 147/67
[2018-02-11] MEDS ORDERED: IPRAT-ALBUT 0.5-3 ML INH (12:24)
[2018-02-11] MEDS ORDERED: CEFUROXIME500 MG PO (12:25)
[2018-02-11] MEDS ORDERED: PREDNISONE 20 M20 MG PO (12:25)
[2018-02-11] MEDS ORDERED: OXYGEN MISCELL (12:27)
[2018-02-11] MEDS ORDERED: NEBULIZER MISCELL (12:34)
[2018-02-11] MEDS ORDERED: ROBITUSSIN100 MG/53 PO (12:34)
== END 2018-02-11 15:03 | DRG 177 ==
LOC: ER 13:49 → EROBS 16:31 → 4W 17:30
PROVIDERS: Internal Medicine; Internal Medicine Geriatric Medicine
DX: J69.0 Pneumonitis due to inhalation of food and vomit (principal); J96.01 Acute respiratory failure with hypoxia; E11.9 Type 2 diabetes mellitus without complications; I10 Essential (primary) hypertension; K21.9 Gastro-esophageal reflux disease without esophagitis; F03.90 Unspecified dementia, unspecified severity, without behavioral disturbance, psychotic disturbance, mood disturbance, and anxiety; E78.5 Hyperlipidemia, unspecified; E03.9 Hypothyroidism, unspecified; Z96.651 Presence of right artificial knee joint; G20 Parkinson's disease; M13.869 Other specified arthritis, unspecified knee; G70.00 Myasthenia gravis without (acute) exacerbation; R09.02 Hypoxemia; Z96.653 Presence of artificial knee joint, bilateral; R13.12 Dysphagia, oropharyngeal phase; D72.829 Elevated white blood cell count, unspecified; Z66 Do not resuscitate; Z79.899 Other long term (current) drug therapy; Z88.8 Allergy status to other drugs, medicaments and biological substances
CPT/HCPCS: 10040

== ENCOUNTER 2018-02-26 16:48 | Inpatient (IN) | payer OTHER ==
[~2018-02-26] VITALS: Ht 157.5 cm; Wt 62.7 kg
--- NOTE | ~2018-02-26 | EKG ---
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 : 1930 Requested By: Jaye Bui Order Number: [id number] MD: Elver Vegas Measurements Intervals [place] Rate: 89 P: RI: QRS: -7 QRSD: 74 T: 171 QT: 257 QTc: 313 Interpretive Statements Sinus rhythm Electrical interference artifact Compared to ECG 05/15/2017 09:22:54 No significant change was found Electronically Signed On 02-27-2018 8:30:46 CDT by Elver Vegas [email or web address] <ELECTRONICALLY SIGNED> By: Elver Vegas MD, [facility] 02/27/18 0830 1655 54 Elver Vegas MD, [facility] /EPI
--- NOTE | ~2018-02-26 | EKG ---
[address] [address] ELECTROCARDIOGRAM REPORT Name: BALDEV APARICIONCHE Caridad Room #: 45-[facility] IN ..#: [id number] Admission: 02/26/18 Attend Phys: Caridad Wayne Discharge: 03/08/18 Date of : 31 Report #: [id number] THIS REPORT FOR: //name// [facility] Test Date: 2018-03-07 Test Time: 09:10:17 Pat Name: SUDHAKAR APARICIO Department: Room: 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
--- NOTE | ~2018-02-26 | D ---
[facility] [place] [address] DISCHARGE SUMMARY Name: SUDHAKAR APARICIO Room #: 452-P [facility] IN M.R.#: [id number] Admission: 02/26/18 Attend Phys: Caridad Wayne Discharge: 03/08/18 Date of : 31 Report #: [id number] THIS REPORT FOR: //name// CC: Graham Shipman Juarez DATE OF SERVICE: 03/08/2018 FINAL DIAGNOSES: 1. Sepsis. 2. Healthcare-associated pneumonia. 3. Urinary tract infection due to Pseudomonas. 4. Altered mental status. 5. Senile dementia. HOSPITAL COURSE: The patient was admitted with altered mental status. Infectious process was the source most likely related to urinary tract infection due to Pseudomonas based on culture. There was some empiric treatment for pneumonia as well. She had an uneventful hospital stay until the day prior to discharge. There was noted change in her mental condition overall, concerns of recurrent sepsis were made. I spoke with Dr. Brizuela who conferred with the family and they pursued a palliative DNR care with plans to return to her care facility with hospice. Therefore, no further aggressive treatment or workup was entered with her change status. DISPOSITION: She is transferring back to [facility] with hospice care. She will be n.p.o. with no meds and terminal care plan in place. By: 1247 1341 Scott Mars MD /marium
--- NOTE | ~2018-02-26 | H ---
[facility] [place] [address] HISTORY AND PHYSICAL Name: SUDHAKAR APARICIO Room #: 452-P ADM IN M.R.#: [id number] Admission: 02/26/18 Attend Phys: Caridad Wayne Discharge: Date of : 31 Report #: [id number] THIS REPORT FOR: //name// CC: Graham Shipman Juarez DATE OF SERVICE: 02/26/2018 HISTORY OF PRESENT ILLNESS: This is a patient who has had increasing issues with aspiration. Apparently choked on some food a few weeks ago, was admitted, thought to have evidence of aspiration, but was able to be transferred back to the care home where she continued to have difficulty and also now is having increasing amounts of congestion and weakness, and was readmitted with pneumonia and urinary tract infection. There was worry about aspiration pneumonia at this time. PAST MEDICAL HISTORY: Noteworthy for myasthenia gravis, diabetes, gastroesophageal reflux disease, hyperlipidemia, hypertension, hypothyroidism, degenerative arthritis, Parkinson disease. ALLERGIES: CIPRO. MEDICATIONS: List includes tramadol, Plavix, metoprolol, Neurontin. She is also on aerosol treatments as well and a pureed diet. FAMILY HISTORY: Noncontributory. SOCIAL HISTORY: She lives at [facility]. REVIEW OF SYSTEMS: Nothing specific at this time. PHYSICAL EXAMINATION: GENERAL: Shows her lying in bed. She has a flushed appearance. VITAL SIGNS: Stable. HEENT: Otherwise negative. NECK: Supple without thyromegaly or adenopathy. CHEST: Coarse. CARDIOVASCULAR: Shows a regular rate and rhythm without murmur. ABDOMEN: Soft and nontender without hepatosplenomegaly. EXTREMITIES: Negative. NEUROLOGIC: She seemed to be moving all extremities and was able to answer my questions appropriately. ASSESSMENT AND PLAN: This is a patient with suspected infection and probably early septicemia with pneumonia, urinary tract infection. Needs inpatient [facility] [address] [place] [address] HISTORY AND PHYSICAL Name: SUDHAKAR APARICIO Room #: 452-P [facility].#: [id number] Admission: 02/26/18 Attend Phys: Caridad Wayne Discharge: Date of : 31 Report #: [id number] management with IV antibiotics and start with Rocephin, and hopefully this will clarify itself soon when the cultures are available. By: 1016 1107 Graham Brizuela MD /nt
[~2018-02-26 16:48] MED LIST changes: +CEFUROXIME500 MG PO; +CYCLOBENZAPRINE5 MG PO; +IPRAT-ALBUT 0.5-3 ML INH; +LASIX 20 MG TAB20 MG PO; +NEBULIZER MISCELL; +OXYGEN MISCELL; +PLAVIX 75 MG TA75 M1 PO; +PREDNISONE 20 M20 MG PO; +ROBITUSSIN100 MG/53 PO
[2018-02-26 16:49] VITALS: BP 161/65
[2018-02-26 17:30] LABS: MCHC 33.3 g/dL (28.0-37.0); MCV 90.2 fL (80.0-100.0); PLATELET COUNT 260 thou/uL (150-400); RBC 3.65 mil/uL (4.20-5.00); RDW 13.9 % (10.5-14.5); WBC 12.9 thou/uL (4.0-11.0)
[2018-02-26] MEDS ORDERED: BENADRYL ITCH28.3 G1 TOP (17:30)
[2018-02-26] MEDS ORDERED: GLUCOSE GEL38 GM PO (17:36)
[2018-02-26] MEDS ORDERED: TYLENOL325 MG PO (17:37)
[2018-02-26] MEDS ORDERED: SYSTANE 0.3-0.1 EACH OPHTHALMIC (17:37)
[2018-02-26] MEDS ORDERED: VICKS VAPORUB O50 GM TOP (17:40)
[2018-02-26 17:44] LABS: APTT 27.6 Seconds (24.5-32.8); PROTIME 10.2 Seconds (9.3-11.4)
[2018-02-26 17:47] LABS: ANION GAP 8 mmol/L (7-16); BUN 25 mg/dL (7-18); CALCIUM 9.2 mg/dL (8.5-10.1); CHLORIDE 101 mmol/L (98-107); CO2 27 mmol/L (21-32); GLUCOSE 158 mg/dL (74-106); POTASSIUM 5.4 mmol/L (3.5-5.1); SODIUM 136 mmol/L (136-145)
[2018-02-26 17:51] LABS: ABSOLUTE NEUTROPHILS 9.2 thou/uL (1.4-8.2); METAMYELOCYTES 5 %; MYELOCYTES 3 %
[2018-02-26 17:52] LABS: TOXIC GRANULATION 1+
[2018-02-26 17:57] LABS: ALBUMIN 2.5 g/dL (3.4-5.0); LIPASE 96 U/L (73-393); SGOT 31 U/L (15-37); SGPT 12 U/L (30-65); TOTAL BILIRUBIN 0.8 mg/dL (<0.1-1.0); TOTAL PROTEIN 7.4 g/dL (6.4-8.2); TROPONIN-I <0.06 ng/mL (<0.06)
[2018-02-26 17:59] LABS: URINE BILIRUBIN NEGATIVE (Negative); URINE BLOOD TRACE (Negative); URINE CLARITY CLEAR; URINE COLOR YELLOW; URINE GLUCOSE-RANDOM* NEGATIVE (Negative); URINE KETONES NEGATIVE (Negative); URINE LEUKOCYTES TRACE (Negative); URINE NITRITE POSITIVE (Negative); URINE PROTEIN (DIPSTICK) NEGATIVE (Negative); URINE SPECIFIC GRAVITY 1.015 (1.005-1.035); URINE UROBILINOGEN 0.2 E.U./dl (0.2-1.0)
[2018-02-26 18:08] LABS: CASTS None Seen /LPF (None Seen); CRYSTALS None Seen /LPF (None Seen); SQUAMOUS 0-3 Few /LPF (0-3); URINE RBC 0-2 Rare /HPF (0-2); URINE WBC 0-5 Rare /HPF (0-5)
[2018-02-26 18:25] VITALS: BP 115/94
[2018-02-26 20:20] VITALS: BP 115/94
[2018-02-26 20:45] VITALS: BP 118/48
[2018-02-27 04:48] VITALS: BP 147/59
[2018-02-27 07:36] VITALS: BP 144/72
[2018-02-27 10:00] VITALS: BP 187/85
[2018-02-27 15:05] VITALS: BP 187/85
[2018-02-27 19:57] VITALS: BP 153/73
[2018-02-28 02:22] VITALS: BP 153/73
[2018-02-28 02:52] VITALS: BP 144/60
[2018-02-28 07:20] VITALS: BP 158/79
[2018-02-28 11:07] VITALS: BP 158/79
[2018-02-28 13:14] VITALS: BP 151/80
[2018-02-28 19:14] VITALS: BP 146/76
[2018-03-01 03:49] VITALS: BP 172/83
[2018-03-01 07:23] VITALS: BP 152/99
[2018-03-01 14:50] VITALS: BP 148/99
[2018-03-01 19:35] VITALS: BP 189/104
[2018-03-02 00:18] VITALS: BP 127/66
[2018-03-02 05:46] VITALS: BP 153/82
[2018-03-02 08:00] VITALS: BP 127/47; BP 135/76
[2018-03-02 15:00] VITALS: BP 144/68
[2018-03-02 19:21] VITALS: BP 127/47
[2018-03-03 01:56] VITALS: BP 127/47
[2018-03-03 03:18] VITALS: BP 151/61
[2018-03-03 06:09] LABS: HEMATOCRIT 29.9 % (37.0-47.0); HEMOGLOBIN 10.2 gm/dL (12.0-15.0); MCH 30.4 pg (26.0-34.0); MCV 89.4 fL (80.0-100.0); RBC 3.35 mil/uL (4.20-5.00); RDW 13.8 % (10.5-14.5); WBC 8.1 thou/uL (4.0-11.0)
[2018-03-03 06:27] LABS: CALCIUM 8.6 mg/dL (8.5-10.1); CREATININE 0.8 mg/dL (0.6-1.0); POTASSIUM 4.3 mmol/L (3.5-5.1)
[2018-03-03 08:05] VITALS: BP 154/89
[2018-03-03 13:35] VITALS: BP 185/84
[2018-03-03 19:35] VITALS: BP 189/93
[2018-03-04 04:13] VITALS: BP 162/94
[2018-03-04 07:14] VITALS: BP 167/75
[2018-03-04 14:02] VITALS: BP 150/79
[2018-03-04 19:18] VITALS: BP 191/103
[2018-03-05 02:24] VITALS: BP 186/91
[2018-03-05 07:23] VITALS: BP 177/91
[2018-03-05 13:26] VITALS: BP 121/68
[2018-03-05 19:24] VITALS: BP 114/58
[2018-03-06 01:00] LABS: HEMOGLOBIN 10.6 gm/dL (12.0-15.0); MCH 29.7 pg (26.0-34.0); MCHC 33.3 g/dL (28.0-37.0); MCV 89.3 fL (80.0-100.0); RBC 3.58 mil/uL (4.20-5.00); RDW 13.5 % (10.5-14.5); WBC 11.7 thou/uL (4.0-11.0)
[2018-03-06 01:09] LABS: CALCIUM 8.9 mg/dL (8.5-10.1)
[2018-03-06 04:22] VITALS: BP 147/65
[2018-03-06 07:52] VITALS: BP 140/98
[2018-03-06 16:27] VITALS: BP 176/85
[2018-03-06 19:44] VITALS: BP 157/118
[2018-03-07 08:00] VITALS: BP 158/107
[2018-03-07 09:33] LABS: HEMATOCRIT 33.3 % (37.0-47.0); HEMOGLOBIN 11.3 gm/dL (12.0-15.0); MCH 29.9 pg (26.0-34.0); MCHC 33.9 g/dL (28.0-37.0); MCV 88.1 fL (80.0-100.0); RBC 3.78 mil/uL (4.20-5.00); RDW 13.6 % (10.5-14.5); WBC 11.7 thou/uL (4.0-11.0)
[2018-03-07 09:34] LABS: PLATELET COUNT 444 thou/uL (150-400)
[2018-03-07 09:37] LABS: CALCIUM 9.5 mg/dL (8.5-10.1); CREATININE 0.9 mg/dL (0.6-1.0); POTASSIUM 3.5 mmol/L (3.5-5.1)
[2018-03-07 09:43] LABS: ALBUMIN 2.3 g/dL (3.4-5.0); MAGNESIUM 2.2 mg/dL (1.8-2.4); TOTAL BILIRUBIN 0.6 mg/dL (<0.1-1.0); TOTAL PROTEIN 7.5 g/dL (6.4-8.2)
[2018-03-07 10:25] LABS: ABSOLUTE NEUTROPHILS 7.8 thou/uL (1.4-8.2)
[2018-03-07 11:07] LABS: URINE BILIRUBIN NEGATIVE (Negative); URINE BLOOD 1+ (Negative); URINE CLARITY CLEAR; URINE COLOR YELLOW; URINE GLUCOSE-RANDOM* NEGATIVE (Negative); URINE KETONES 1+ (Negative); URINE LEUKOCYTES NEGATIVE (Negative); URINE NITRITE NEGATIVE (Negative); URINE PROTEIN (DIPSTICK) 1+ (Negative); URINE UROBILINOGEN 0.2 E.U./dl (0.2-1.0)
[2018-03-07 11:24] LABS: BACTERIA None Seen /HPF (None Seen); CRYSTALS None Seen /LPF (None Seen); HYALINE CASTS 0-3 Few /LPF (None Seen); SQUAMOUS 0-3 Few /LPF (0-3); URINE RBC 0-2 Rare /HPF (0-2); URINE WBC 0-5 Rare /HPF (0-5)
[2018-03-07 13:55] VITALS: BP 148/107
[2018-03-07 19:08] VITALS: BP 193/105
[2018-03-07 20:49] VITALS: BP 153/96
[2018-03-08 03:04] VITALS: BP 155/88
[2018-03-08 07:35] VITALS: BP 140/70
== END 2018-03-08 13:48 | DRG 871 ==
LOC: ER 16:48 → 4W 18:16 → EROBS 18:16 → 4W 20:19
PROVIDERS: Internal Medicine; Internal Medicine Geriatric Medicine; Physician Assistant
DX: A41.9 Sepsis, unspecified organism (principal); J18.9 Pneumonia, unspecified organism; N39.0 Urinary tract infection, site not specified; E11.9 Type 2 diabetes mellitus without complications; K21.9 Gastro-esophageal reflux disease without esophagitis; E78.5 Hyperlipidemia, unspecified; I10 Essential (primary) hypertension; E03.9 Hypothyroidism, unspecified; Z96.652 Presence of left artificial knee joint; E86.0 Dehydration; E87.5 Hyperkalemia; B96.5 Pseudomonas (aeruginosa) (mallei) (pseudomallei) as the cause of diseases classified elsewhere; M19.90 Unspecified osteoarthritis, unspecified site; G20 Parkinson's disease; F02.80 Dementia in other diseases classified elsewhere, unspecified severity, without behavioral disturbance, psychotic disturbance, mood disturbance, and anxiety; Z66 Do not resuscitate; Z51.5 Encounter for palliative care; Z88.1 Allergy status to other antibiotic agents; Z79.899 Other long term (current) drug therapy
CPT/HCPCS: 10045; 10047